=== PATIENT | male | born 1990 | race Two or more races ===

== ENCOUNTER 2018-12-09 13:23 | Emergency (ER) | payer SELFPAY ==
[~2018-12-09] VITALS: Ht 190.5 cm; Wt 99.8 kg
--- NOTE | 2018-12-09 13:40 | NUR ---
WITNESSED SEIZURE WHILE WALKING X 1 HOUR. RAN OUT OF [employer] 4 DAYS AGO R HAND ABRASION, +ORAL TRAUMA. PATIENT A/OX3, PLACED ON THE MONITOR, SEIZURE PRECAUTION OBSERVED. WILL MONITOR.
[2018-12-09] MEDS ORDERED: LEVE750T10 PO (13:45)
[2018-12-09 13:58] LABS: BASOPHILS % (AUTO) 0.5 % (0.0-2.0); EOSINOPHILS % (AUTO) 0.6 % (0.0-6.0); HEMATOCRIT 49 % (39-51); HEMOGLOBIN 17.1 g/dL (13.5-17.5); LYMPHOCYTES # (AUTO) 1.1 /CMM (0.8-4.8); MEAN CORPUSCULAR HGB CONC 35 g/dl (31.0-36.0); MEAN CORPUSCULAR VOLUME 90 fL (80-96); MONOCYTES # (AUTO) 0.6 /CMM (0.1-1.30); MONOCYTES % (AUTO) 6.9 % (2.0-12.0); NEUTROPHILS # (AUTO) 7.2 /CMM (1.8-8.9); PLATELET COUNT (AUTO) 250 /CMM (150-450); RED BLOOD CELL COUNT(AUTO) 5.39 MIL/uL (4.5-6.0)
[2018-12-09] MEDS ORDERED: LEVETIRACETAM (500MG) 1,000 MG in IV NS 0.9% 100 ML IV SCH (14:00)
[2018-12-09] MEDS ORDERED: IV NS 0.9% 1,000 ML BAG IV ONE (14:00)
[2018-12-09 14:09] LABS: ALCOHOL, BLOOD < 3 mg/dL (0-0); CALCIUM, SERUM 8.6 mg/dL (8.5-10.1); CARBON DIOXIDE 27 mmol/L (21-32); CHLORIDE 102 mmol/L (98-107); CREATININE 1.2 mg/dL (0.6-1.3); GLUCOSE 110 mg/dL (74-106); POTASSIUM 3.5 mmol/L (3.5-5.1); SODIUM SERUM 139 mmol/L (136-145); UREA NITROGEN, BLOOD 7 mg/dL (7-18)
[2018-12-09 15:15] VITALS: BP 157/85
--- NOTE | 2018-12-09 15:15 | NUR ---
PIV removed, RX provided, Patient discharged to home in stable condition. Written and verbal after care instructions given. Patient verbalizes understanding of instruction. Patient left accompanied by brother and girlfriend.
== END 2018-12-09 15:16 | disposition home or self-care (01) ==
LOC: ER 13:23
DX: R56.9 Unspecified convulsions (principal); F17.200 Nicotine dependence, unspecified, uncomplicated; Z79.899 Other long term (current) drug therapy
CPT/HCPCS: 36415; 80048; 80307; 85025; 96365; 99283; J1953; J7030 ×2; G0480